=== PATIENT | female | born 1930 | race Caucasian/White ===

== ENCOUNTER 2020-08-02 11:25 | Inpatient (IN) | payer MEDICARE, BC ==
[~2020-08-02] VITALS: Ht 162.6 cm; Wt 90.9 kg
[2020-08-02 12:01] LABS: HEMATOCRIT 41.3 % (37.0-47.0); HEMOGLOBIN 13.3 g/dl (12.0-16.0); IMMATURE GRANULOCYTES 0.3 % (0.0-5.0); MEAN CELL VOLUME 96.5 fL CALC (80.0-100.0); MEAN CORPUSCULAR HGB 31.1 pG CALC (26.0-32.0); MEAN CORPUSCULAR HGB CONC 32.2 g/dL CAL (32.0-36.0); NEUT# 4.68 thou/uL (2.00-7.15); RED BLOOD COUNT 4.28 mill/uL (4.20-5.60); RED CELL DISTRI WIDTH 13.1 % (11.5-15.5)
[2020-08-02 12:02] LABS: URINE BILIRUBIN - DIPSTICK NEGATIVE (NEGATIVE); URINE BLOOD DIPSTICK TRACE-INTACT (NEGATIVE); URINE COLOR YELLOW; URINE GLUCOSE - DIPSTICK NEGATIVE (NEGATIVE); URINE KETONE NEGATIVE (NEGATIVE); URINE LEUK ESTERASE NEGATIVE (NEGATIVE); URINE NITRITE - DIPSTICK NEGATIVE (Negative); URINE PH 5.5 (4.5-8.0); URINE PROTEIN - DIPSTICK TRACE mg/dL (NEG-TRACE); URINE SPECIFIC GRAVITY 1.025; URINE UROBILINOGEN - DIPSTICK 0.2 E.U./dL (0.2)
[2020-08-02 12:17] LABS: ALBUMIN 4.2 g/dL (3.2-5.0); ALKALINE PHOSPHATASE 45 u/l (38-126); ANION GAP 15 (6-22 (CALC)); BILIRUBIN, TOTAL 0.8 mg/dL (0.0-1.4); BUN 23 mg/dL (8-23); BUN/CREATININE RATIO 22 (12-20 (CALC)); CARBON DIOXIDE 21 mmol/l (22-30); CHLORIDE 111 mmol/l (95-108); CPK 57 u/l (30-165); GFR 52 ML/MIN (>=60 (CALC)); GFR FOR AFR.AMER. > 60 ML/MIN (>=60 (CALC)); POTASSIUM 3.9 mmol/l (3.5-5.1); SGOT/AST 17 u/l (9-36); SODIUM 143 mmol/l (137-146); TOTAL PROTEIN 7.3 g/dL (6.3-8.2)
[2020-08-02 12:29] LABS: PROTHROMBIN TIME 9.9 SECONDS (9.0-12.5)
[2020-08-02] MEDS ORDERED: ANASTROZOLE1 MG PO (13:27)
[2020-08-02] MEDS ORDERED: BACLOFEN10 MG PO (13:27)
[2020-08-02] MEDS ORDERED: CELEBREX100 M1 PO (13:28)
[2020-08-02] MEDS ORDERED: PRESERVISION ARED1 PO (13:30)
[2020-08-02] MEDS ORDERED: TYLENOL325 M2 PO (13:30)
[2020-08-02] MEDS ORDERED: VITAMIN D32000 UNI2 PO (13:31)
[2020-08-02 15:15] VITALS: BP 142/88
[2020-08-02 20:00] VITALS: BP 172/81
[2020-08-03 07:45] VITALS: BP 195/99
[2020-08-03] MEDS ORDERED: ASPIRIN 81 LOW81 MG PO (10:35)
[2020-08-03] MEDS ORDERED: NORVASC5 M1 PO (10:45)
== END 2020-08-03 10:56 | disposition home or self-care (01) | DRG 948 ==
LOC: ED 11:25 → ED-I 13:18 → ED 13:25 → MS2 13:26
PROVIDERS: Student in an Organized Health Care Education/Training Program; ADMIT Internal Medicine; ATTEND Internal Medicine
DX: R41.0 Disorientation, unspecified (principal); R20.0 Anesthesia of skin; R47.81 Slurred speech; T42.8X5A Adverse effect of antiparkinsonism drugs and other central muscle-tone depressants, initial encounter; I10 Essential (primary) hypertension; G31.9 Degenerative disease of nervous system, unspecified; G89.29 Other chronic pain; M79.604 Pain in right leg; Z20.822 Contact with and (suspected) exposure to COVID-19; Z79.811 Long term (current) use of aromatase inhibitors; Z79.1 Long term (current) use of non-steroidal anti-inflammatories (NSAID); Z79.899 Other long term (current) drug therapy